=== PATIENT | female | born 1990 | race Caucasian/White ===

== ENCOUNTER 2020-12-10 11:25 | Emergency (ER) | payer OTHER, SELFPAY ==
[2020-12-10 11:38] VITALS: BP 112/71; PULSE 62; RESP 16; TEMP 36.6; O2SAT 100
--- NOTE | 2020-12-10 12:38 | ED.FEMALEGU ---
HPI - Female Genitourinary General Chief complaint: Urogenital-Female Stated complaint: UTI Time Seen by Provider: 12/10/20 12:38 Source: patient, RN notes reviewed and old records reviewed Mode of arrival: ambulatory Limitations: no limitations History of Present Illness HPI Narrative: 30 year old female who presents to [facility] care with complaints of having urgency,burning, and odor of her urine with noting blood on tissue paper on tissue paper once yesterday, states has had hysterectomy. Patient states that she has history of UTI's and did take AZO on Sunday and Sunday of this week and has been drinking water and cranberry juice.she reports that she also has some suprapubic tenderness and discomfort when she voids. Patient denies any known fevrs, chills or sweats, denies any nausea vomiting or diarrhea, or any vaginal discharge or itching. Patient denies any concern for STD exposure. MD elicited complaint: dysuria and UTI Related Data Home Medications Medication Instructions Recorded Confirmed levothyroxine 12/10/20 Allergies Allergy/AdvReac Type Severity Reaction Status Date / Time No Known Allergies Allergy Verified 12/10/20 11:37 Review of Systems Review of Systems: CONSTITUTIONAL: Denies fever, chills, or sweats. EYES: Denies visual changes, redness, or discharge. ENT: Denies rhinorrhea, congestion, sore throat, or otalgia. CARDIOVASCULAR: Denies chest pain, palpitations, or edema. RESPIRATORY: Denies cough or dyspnea. GASTROINTESTINAL: Reports suprapubic abdominal pain,no nausea, vomiting, or diarrhea. GENITOURINARY: Positive dysuria and one episode of hematuria noted SKIN: Denies rash or itching. MUSCULOSKELETAL: Denies back pain, joint pain, or myalgia. NEUROLOGIC: Denies headache, numbness, or weakness. PSYCHIATRIC: Denies anxiety or depression. All systems reviewed & are unremarkable except as noted in HPI and below PMFSH Past Medical History Medical History (Updated 12/10/20 @ 18:25 by Rafaela Simpson NP) UTI (urinary tract infection) Surgical History Surgical History (Updated 12/10/20 @ 18:25 by Rafaela Simpson NP) History of hysterectomy Family History Family History (Updated 12/10/20 @ 18:25 by Rafaela Simpson NP) Sibling Kidney stones Social History Social History (Updated 12/10/20 @ 18:26 by Rafaela Simpson NP) Smoking status: Never smoker Alcohol intake: current Alcohol use details: social Substance use: never Living arrangements: with family Gender identity (if verbalized by the patient): Female Comments At time of signature, agree with nursing past medical, surgical, social and family history. There is no relevant family history pertinent to the presenting complaint Exam Narrative: GENERAL: Well-appearing, well-nourished, and in no acute distress. HEAD: Normocephalic, atraumatic. EYES: PERRLA and EOMI. ENT: Nares clear, no rhinorrhea or epistaxis. Mucous membranes moist.TM's normal with good light reflex, throat pink with no lesions or exudates, no tonsil enlargement. NECK: Supple. no lymphadenopathy CHEST: Clear to auscultation. No respiratory distress. SAO2 100% on room air. HEART: Regular rate and rhythm. No murmur heard. Normal peripheral pulses. ABDOMEN: Soft, tender suprapubic abdominal area, nondistended, normal active bowel sounds. No CVA tenderness on exam EXTREMITIES: Normal range of motion. No edema. SKIN: Warm, dry, no rash. NEURO: No focal deficits. Alert and oriented x3. Course Vital Signs Vital signs: Vital Signs Temperature 36.6 C 12/10/20 11:38 Pulse Rate 62 12/10/20 11:38 Respiratory Rate 16 12/10/20 11:38 Blood Pressure 112/71 12/10/20 11:38 Pulse Oximetry 100 12/10/20 11:38 Temperature 36.6 C 12/10/20 11:38 Pulse Rate 62 12/10/20 11:38 Respiratory Rate 16 12/10/20 11:38 Blood Pressure 112/71 12/10/20 11:38 Pulse Oximetry 100 12/10/20 11:38 MDM - Female Genitourinary MDM Na
== END 2020-12-10 12:56 | disposition home or self-care (01) ==
PROVIDERS: Emergency Provider Registered Nurse
DX: R30.0 Dysuria (principal)
CPT/HCPCS: 81003; 87086; 87088; 99213; G0463